=== PATIENT | female | born 1990 | race Caucasian/White ===

== ENCOUNTER 2016-09-15 21:22 | Emergency (ER) | payer OTHER ==
[~2016-09-15] VITALS: Ht 165.1 cm; Wt 64.7 kg
[~2016-09-15 21:22] MED LIST: ENDOCET 5-3251 EACH PO; IBUPROFEN800 MG PO; Motrin PO; PRENATAL TABLE1 EAC3 PO; Roxicet,Percocet 5/3 PO
[2016-09-15 21:27] VITALS: BP 124/99
== END 2016-09-15 23:27 | disposition left against medical advice (07) ==
LOC: EME 21:22
DX: M79.675 Pain in left toe(s) (principal); Z53.21 Procedure and treatment not carried out due to patient leaving prior to being seen by health care provider
CPT/HCPCS: 99281